=== PATIENT | male | born 1975 | race Caucasian/White ===

== ENCOUNTER 2023-03-13 01:31 | Emergency (ER) | payer MEDICAID ==
[~2023-03-13] VITALS: Ht 190.5 cm; Wt 129.2 kg
[2023-03-13 01:45] VITALS: BP 144/87; PULSE 69; RESP 16; TEMP 98.1; O2SAT 98
== END 2023-03-13 02:02 | disposition home or self-care (01) ==
LOC: ER 01:32
DX: F15.93 Other stimulant use, unspecified with withdrawal (principal)
CPT/HCPCS: 99281

== ENCOUNTER 2023-11-25 15:23 | Emergency (ER) | payer MEDICAID ==
[~2023-11-25] VITALS: Ht 190.5 cm; Wt 134.9 kg
[2023-11-25 15:24] VITALS: TEMP 99
[2023-11-25 17:02] LABS: BASOPHILS % (AUTO) 0.4 % (0-1); EOSINOPHILS # (AUTO) 0.1 X10'3 (0-0.9); EOSINOPHILS % (AUTO) 2.3 % (0-6); HEMOGLOBIN 12.5 g/dl (14.0-17.9); LYMPHOCYTES % (AUTO) 36.1 % (21-51); MEAN CORPUSCULAR HEMOGLOBIN 31.5 PG (27.0-31.0); MEAN CORPUSCULAR HGB CONC 33.9 g/dL (33.0-36.5); MEAN CORPUSCULAR VOLUME 92.9 FL (78-98); MEAN PLATELET VOLUME 8.3 FL (7.4-10.4); MONOCYTES # (AUTO) 0.4 X10'3 (0-0.9); MONOCYTES % (AUTO) 12.9 % (2-12); NEUTROPHILS # (AUTO) 1.4 X10'3 (1.8-7.7); NEUTROPHILS % (AUTO) 48.3 % (42-75); PLATELET COUNT 78 X10'3 (140-440); RED BLOOD COUNT 3.99 X10'6 (4.70-6.10); RED CELL DISTRIBUTION WIDTH 13.8 % (11.5-14.5); WHITE BLOOD COUNT 2.8 X10'3 (4.5-11.0)
[2023-11-25 17:17] LABS: ALANINE AMINOTRANSFERASE 349 U/L (12-78); ALBUMIN 2.7 G/DL (3.4-5.0); ALBUMIN/GLOBULIN RATIO 0.7 (1.1-1.5); ALKALINE PHOSPHATASE 152 IU/L (46-116); ANION GAP 4 (8-16); ASPARTATE AMINO TRANSFERASE 320 U/L (10-37); BLOOD UREA NITROGEN 13 MG/DL (7-18); BUN/CREATININE RATIO 17.8 (10.0-20.0); CALCIUM 8.4 MG/DL (8.5-10.1); CHLORIDE 107 MMOL/L (99-107); CREATININE 0.73 MG/DL (0.60-1.10); GLUCOSE 141 MG/DL (70-104); POTASSIUM 3.6 MMOL/L (3.5-5.1); SODIUM 141 MMOL/L (135-145); TOTAL CARBON DIOXIDE 30.1 MMOL/L (24-32); TOTAL PROTEIN 6.8 G/DL (6.4-8.2); eCRCL 150 ML/MIN; eGFR > 90 ML/MIN
[2023-11-25 17:28] LABS: FREE T4 (FREE THYROXINE) 1.15 NG/DL (0.73-1.40); PLATELET ESTIMATE DECREASED; PRO BRAIN NATRIURETIC PEPTIDE 37 PG/ML (0-125); THYROID STIMULATING HORMONE 2.33 ulU/ml (0.34-4.50); TOTAL CELLS COUNTED 100
[2023-11-25 17:57] LABS: APTT 32 SECONDS (22-32); INR 1.3 INR; PROTHROMBIN TIME 13.2 SECONDS (9.0-12.0)
[2023-11-25] MEDS ORDERED: POTA-207 PO (18:13)
[2023-11-25] MEDS ORDERED: FURO40TA4 PO (18:13)
[2023-11-25 18:55] VITALS: BP 145/79; PULSE 66; RESP 15; O2SAT 96
== END 2023-11-25 18:56 | disposition home or self-care (01) ==
LOC: ER 15:24
DX: R60.0 Localized edema (principal); R74.8 Abnormal levels of other serum enzymes; F17.210 Nicotine dependence, cigarettes, uncomplicated; F15.90 Other stimulant use, unspecified, uncomplicated; M79.661 Pain in right lower leg; Z79.899 Other long term (current) drug therapy
CPT/HCPCS: 36415; 71045; 80053; 83880; 84439; 84443; 84484; 85007; 85025; 85610; 85730; 93005; 93971; 99285

== ENCOUNTER 2024-06-12 16:06 | Inpatient (IN) | payer MEDICAID ==
[~2024-06-12] VITALS: Ht 190.5 cm; Wt 136.4 kg
[~2024-06-12 16:06] MED LIST: FURO40TA4 PO
[2024-06-12 17:11] LABS: BASOPHILS % (AUTO) 0.1 % (0-1); EOSINOPHILS # (AUTO) 0.1 X10'3 (0-0.9); EOSINOPHILS % (AUTO) 1.3 % (0-6); HEMATOCRIT 40.8 % (42.0-52.0); HEMOGLOBIN 14.4 g/dl (14.0-17.9); LYMPHOCYTES # (AUTO) 0.8 X10'3 (1.1-4.8); LYMPHOCYTES % (AUTO) 6.5 % (21-51); MEAN CORPUSCULAR HEMOGLOBIN 32.7 PG (27.0-31.0); MEAN CORPUSCULAR HGB CONC 35.2 g/dL (33.0-36.5); MEAN PLATELET VOLUME 7.9 FL (7.4-10.4); MONOCYTES # (AUTO) 1.3 X10'3 (0-0.9); MONOCYTES % (AUTO) 11.1 % (2-12); NEUTROPHILS # (AUTO) 9.4 X10'3 (1.8-7.7); PLATELET COUNT 94 X10'3 (140-440); RED BLOOD COUNT 4.39 X10'6 (4.70-6.10); RED CELL DISTRIBUTION WIDTH 13.4 % (11.5-14.5); WHITE BLOOD COUNT 11.6 X10'3 (4.5-11.0)
[2024-06-12 17:27] LABS: ALBUMIN 2.3 G/DL (3.4-5.0); ANION GAP 6 (8-16); BLOOD UREA NITROGEN 19 MG/DL (7-18); BUN/CREATININE RATIO 23.2 (10.0-20.0); CALCIUM 8.5 MG/DL (8.5-10.1); CHLORIDE 99 MMOL/L (99-107); CREATININE 0.82 MG/DL (0.60-1.10); GLUCOSE 94 MG/DL (70-104); SODIUM 134 MMOL/L (135-145); TOTAL CARBON DIOXIDE 29.2 MMOL/L (24-32); eCRCL 133 ML/MIN; eGFR > 90 ML/MIN
[2024-06-12 17:28] LABS: POTASSIUM 3.4 MMOL/L (3.5-5.1)
[2024-06-12] MEDS ORDERED: VANCOMYCIN 1GM 200ML H20 (PEG) 200 ML IV ONE (18:00)
[2024-06-12] MEDS: vancomycin/NS 1 GM ADD-VANTAGE 250 ML IV ONE (19:29)
[2024-06-12] MEDS ORDERED: magnesium sulf-water 2g/50mL 50 ML IV PRN (20:20)
[2024-06-12] MEDS ORDERED: magnesium Cl slow-release 64mg tablet PO PRN (20:20)
[2024-06-12] MEDS ORDERED: potassium Cl 40MEQ/1/2NS 520ml 520 ML IV PRN (20:20)
[2024-06-12] MEDS ORDERED: magnesium sulf-water 4G/100mL 100 ML IV PRN (20:20)
[2024-06-12] MEDS ORDERED: ondansetron/PF 4mg/2ml inj IV PRN (20:20)
[2024-06-13] VITALS (8 sets, daily range): BP systolic 115–138; BP diastolic 46–69; PULSE 91–100; RESP 18–22; TEMP 97.9–100.2; O2SAT 93–99
[2024-06-13] MEDS ORDERED: PERFLUTREN PROTEIN-A MICROSPHR (Optison) 0.22 MG/ML 3ML VIAL IV PRN (00:55)
[2024-06-13] MEDS: acetaminophen 325mg tablet PO PRN ×2 (01:24→21:36)
[2024-06-13] MEDS: CEFEPIME 2gm in D5W 50mL 50 ML IV SCH (02:26)
[2024-06-13] MEDS: VANCOMYCIN 1GM 200ML H20 (PEG) 250 ML IV SCH (04:05)
[2024-06-13 04:35] LABS: BILIRUBIN,URINE SMALL (Neg); CLARITY,URINE SLIGHTLY CLOUDY (Clear); COLOR,URINE YELLOW (Yellow); GLUCOSE, URINE 100 mg/dl (Neg); KETONES,URINE NEGATIVE (Neg); LEUKOCYTE ESTERASE ,URINE NEGATIVE (Neg); NITRITES, URINE NEGATIVE (Neg); OCCULT BLOOD,URINE NEGATIVE (Neg); PROTEIN,URINE NEGATIVE (Neg); UROBILINOGEN,URINE >=8.0 E.U/dL (0.2-1.0)
[2024-06-13 04:38] LABS: UA COLLECTION TYPE URINAL
[2024-06-13 04:45] LABS: BACTERIA,URINE FEW /HPF (Neg); RBC,URINE NONE SEEN /HPF (0-2); SQUAMOUS EPITHELIAL CELL,UR FEW /LPF (FEW); WBC,URINE 0-4 /HPF (0-4)
[2024-06-13 04:57] LABS: URINE AMPHETAMINE SCREEN POSITIVE (Neg); URINE BARBITUATE SCREEN NEGATIVE (Neg); URINE BENZODIAZEPINES SCREEN NEGATIVE (Neg); URINE CANNABINOID SCREEN NEGATIVE (Neg); URINE COCAINE SCREEN NEGATIVE (Neg); URINE METHADONE SCREEN POSITIVE (Neg); URINE OPIATE SCREEN NEGATIVE (Neg); URINE PHENCYCLIDINE SCREEN NEGATIVE (Neg)
[2024-06-13] MEDS: heparin, porcine 5000 units/ml vial SQ SCH (08:00)
[2024-06-13] MEDS: K and/or MAG REPLACEMENT MC SCH (08:00)
[2024-06-13] MEDS ORDERED: SOFO1TAB3 (08:52)
[2024-06-13] MEDS ORDERED: METH-603 PO (09:01)
[2024-06-13] MEDS: docusate sod 100mg capsule PO SCH (09:02)
[2024-06-13] MEDS: furosemide 40mg/4ml inj IV SCH (09:02)
[2024-06-13 10:38] LABS: BASOPHILS % (AUTO) 0.1 % (0-1); EOSINOPHILS # (AUTO) 0.1 X10'3 (0-0.9); EOSINOPHILS % (AUTO) 1.1 % (0-6); HEMATOCRIT 35.1 % (42.0-52.0); HEMOGLOBIN 12.4 g/dl (14.0-17.9); LYMPHOCYTES # (AUTO) 0.7 X10'3 (1.1-4.8); LYMPHOCYTES % (AUTO) 7.2 % (21-51); MEAN CORPUSCULAR HEMOGLOBIN 32.9 PG (27.0-31.0); MEAN CORPUSCULAR HGB CONC 35.2 g/dL (33.0-36.5); MEAN CORPUSCULAR VOLUME 93.6 FL (78-98); MEAN PLATELET VOLUME 8.2 FL (7.4-10.4); MONOCYTES # (AUTO) 1.1 X10'3 (0-0.9); MONOCYTES % (AUTO) 10.7 % (2-12); NEUTROPHILS # (AUTO) 8.4 X10'3 (1.8-7.7); NEUTROPHILS % (AUTO) 80.9 % (42-75); PLATELET COUNT 88 X10'3 (140-440); RED BLOOD COUNT 3.75 X10'6 (4.70-6.10); RED CELL DISTRIBUTION WIDTH 13.8 % (11.5-14.5); WHITE BLOOD COUNT 10.4 X10'3 (4.5-11.0)
[2024-06-13 10:46] LABS: ALANINE AMINOTRANSFERASE 28 U/L (12-78); ALBUMIN 1.8 G/DL (3.4-5.0); ALBUMIN/GLOBULIN RATIO 0.4 (1.1-1.5); ALKALINE PHOSPHATASE 124 IU/L (46-116); ANION GAP 4 (8-16); ASPARTATE AMINO TRANSFERASE 40 U/L (10-37); BILIRUBIN,TOTAL 2.1 MG/DL (0.1-1.0); BLOOD UREA NITROGEN 16 MG/DL (7-18); BUN/CREATININE RATIO 20.3 (10.0-20.0); CALCIUM 7.8 MG/DL (8.5-10.1); CHLORIDE 102 MMOL/L (99-107); CREATININE 0.79 MG/DL (0.60-1.10); GLUCOSE 102 MG/DL (70-104); MAGNESIUM 1.9 MG/DL (1.5-2.4); SODIUM 135 MMOL/L (135-145); TOTAL CARBON DIOXIDE 29.1 MMOL/L (24-32); TOTAL PROTEIN 5.9 G/DL (6.4-8.2); eCRCL 138 ML/MIN; eGFR > 90 ML/MIN
[2024-06-13 10:47] LABS: POTASSIUM 3.5 MMOL/L (3.5-5.1)
[2024-06-13] MEDS: methadone 10mg tablet PO SCH (12:59)
[2024-06-13] MEDS: VANCOMYCIN 1GM 200ML H20 (PEG) 200 ML IV SCH (13:37)
[2024-06-13] MEDS ORDERED: SOFO1TAB3 PO (15:51)
[2024-06-13] MEDS: lactose-reduced food (Ensure High Protein) 237ml bottle PO SCH (18:03)
[2024-06-13] MEDS: VANCOMYCIN LEVEL IV ONE (20:05)
[2024-06-14 02:00] VITALS: BP 130/58; PULSE 94; RESP 18; TEMP 98.2; O2SAT 92
[2024-06-14 02:35] VITALS: BP 117/46; PULSE 87; RESP 16; TEMP 99.1; O2SAT 93
[2024-06-14 05:17] LABS: BASOPHILS % (AUTO) 0.3 % (0-1); EOSINOPHILS # (AUTO) 0.2 X10'3 (0-0.9); EOSINOPHILS % (AUTO) 1.8 % (0-6); HEMOGLOBIN 12.7 g/dl (14.0-17.9); LYMPHOCYTES # (AUTO) 1.2 X10'3 (1.1-4.8); MEAN CORPUSCULAR HEMOGLOBIN 32.5 PG (27.0-31.0); MEAN CORPUSCULAR HGB CONC 35.2 g/dL (33.0-36.5); MEAN CORPUSCULAR VOLUME 92.5 FL (78-98); MEAN PLATELET VOLUME 7.5 FL (7.4-10.4); MONOCYTES # (AUTO) 1.4 X10'3 (0-0.9); MONOCYTES % (AUTO) 11.8 % (2-12); NEUTROPHILS # (AUTO) 9.2 X10'3 (1.8-7.7); NEUTROPHILS % (AUTO) 76.1 % (42-75); PLATELET COUNT 85 X10'3 (140-440); RED BLOOD COUNT 3.89 X10'6 (4.70-6.10); RED CELL DISTRIBUTION WIDTH 13.9 % (11.5-14.5)
[2024-06-14 05:47] LABS: ALANINE AMINOTRANSFERASE 25 U/L (12-78); ALBUMIN 1.6 G/DL (3.4-5.0); ALBUMIN/GLOBULIN RATIO 0.4 (1.1-1.5); ALKALINE PHOSPHATASE 158 IU/L (46-116); ANION GAP 5 (8-16); ASPARTATE AMINO TRANSFERASE 33 U/L (10-37); BILIRUBIN,TOTAL 1.5 MG/DL (0.1-1.0); BLOOD UREA NITROGEN 14 MG/DL (7-18); BUN/CREATININE RATIO 17.7 (10.0-20.0); CALCIUM 7.6 MG/DL (8.5-10.1); CHLORIDE 102 MMOL/L (99-107); CREATININE 0.79 MG/DL (0.60-1.10); GLUCOSE 118 MG/DL (70-104); SODIUM 135 MMOL/L (135-145); TOTAL CARBON DIOXIDE 28.2 MMOL/L (24-32); TOTAL PROTEIN 5.8 G/DL (6.4-8.2); eCRCL 138 ML/MIN; eGFR > 90 ML/MIN
[2024-06-14 06:00] VITALS: BP 113/50; PULSE 80; RESP 16; TEMP 98.6; O2SAT 93
[2024-06-14 06:02] LABS: POTASSIUM 2.8 MMOL/L (3.5-5.1)
[2024-06-14] MEDS: potassium Cl 20 mEq SR tablet PO PRN (06:19)
[2024-06-14] MEDS ORDERED: methadone 10mg tablet PO SCH (08:00)
[2024-06-14 08:23] LABS: PLATELET ESTIMATE DECREASED; TOTAL CELLS COUNTED 100
[2024-06-14 08:24] LABS: POIKILOCYTOSIS 1+; TOXIC GRANULATION 2+
[2024-06-14 08:28] VITALS: RESP 19; O2SAT 94
[2024-06-14] MEDS: VANCOMYCIN/WATER FOR INJ (PEG) 1.5GM/300 ML IVPB IV SCH (11:13)
[2024-06-14 18:05] VITALS: BP 139/68; PULSE 81; RESP 18; TEMP 99; O2SAT 93
[2024-06-14 22:00] VITALS: BP 138/54; PULSE 53; RESP 18; TEMP 97.8; O2SAT 94
[2024-06-15 07:21] VITALS: BP 130/61; PULSE 80; RESP 18; TEMP 98; O2SAT 94
[2024-06-15 08:00] VITALS: RESP 18
[2024-06-15] MEDS: VANCOMYCIN LEVEL IV ONE (11:36)
[2024-06-15 11:39] VITALS: BP 137/78; PULSE 76; RESP 16; TEMP 98.6; O2SAT 98
[2024-06-15 12:58] LABS: BASOPHILS % (AUTO) 0.3 % (0-1); EOSINOPHILS # (AUTO) 0.2 X10'3 (0-0.9); EOSINOPHILS % (AUTO) 1.7 % (0-6); HEMATOCRIT 38.3 % (42.0-52.0); HEMOGLOBIN 13.3 g/dl (14.0-17.9); LYMPHOCYTES # (AUTO) 1.2 X10'3 (1.1-4.8); LYMPHOCYTES % (AUTO) 9.8 % (21-51); MEAN CORPUSCULAR HEMOGLOBIN 32.5 PG (27.0-31.0); MEAN CORPUSCULAR HGB CONC 34.9 g/dL (33.0-36.5); MEAN CORPUSCULAR VOLUME 93.1 FL (78-98); MEAN PLATELET VOLUME 7.5 FL (7.4-10.4); MONOCYTES # (AUTO) 1.5 X10'3 (0-0.9); MONOCYTES % (AUTO) 11.7 % (2-12); NEUTROPHILS # (AUTO) 9.5 X10'3 (1.8-7.7); NEUTROPHILS % (AUTO) 76.5 % (42-75); PLATELET COUNT 98 X10'3 (140-440); RED BLOOD COUNT 4.11 X10'6 (4.70-6.10); WHITE BLOOD COUNT 12.4 X10'3 (4.5-11.0)
[2024-06-15 13:10] LABS: ALANINE AMINOTRANSFERASE 24 U/L (12-78); ALBUMIN 1.6 G/DL (3.4-5.0); ALBUMIN/GLOBULIN RATIO 0.3 (1.1-1.5); ALKALINE PHOSPHATASE 136 IU/L (46-116); ANION GAP 0 (8-16); ASPARTATE AMINO TRANSFERASE 41 U/L (10-37); BILIRUBIN,TOTAL 1.4 MG/DL (0.1-1.0); BLOOD UREA NITROGEN 14 MG/DL (7-18); CALCIUM 7.7 MG/DL (8.5-10.1); CHLORIDE 100 MMOL/L (99-107); CREATININE 0.61 MG/DL (0.60-1.10); GLUCOSE 119 MG/DL (70-104); MAGNESIUM 1.8 MG/DL (1.5-2.4); POTASSIUM 3.1 MMOL/L (3.5-5.1); SODIUM 135 MMOL/L (135-145); TOTAL CARBON DIOXIDE 34.7 MMOL/L (24-32); TOTAL PROTEIN 6.4 G/DL (6.4-8.2); VANCOMYCIN,TROUGH 11.7 ug/mL (10.0-20.0); eCRCL 179 ML/MIN; eGFR > 90 ML/MIN
[2024-06-15] MEDS: potassium Cl 20 mEq SR tablet PO PRN ×2 (13:28→21:34)
[2024-06-15 17:22] LABS: CREATINE KINASE 28 U/L (39-308); LIPASE 15 U/L (16-77); PRO BRAIN NATRIURETIC PEPTIDE 592 PG/ML (0-125)
[2024-06-15 18:00] VITALS: BP 111/61; PULSE 95; RESP 13; TEMP 98; O2SAT 93
[2024-06-15 20:00] VITALS: RESP 18; O2SAT 93
[2024-06-15] MEDS: VANCOMYCIN 1.75GM/WATER FOR INJ (PEG) 350 ML IVPB IV SCH (20:25)
[2024-06-15] MEDS ORDERED: potassium Cl 20 mEq SR tablet PO PRN (20:45)
[2024-06-15] MEDS ORDERED: magnesium Cl slow-release 64mg tablet PO PRN (20:50)
[2024-06-15] MEDS ORDERED: magnesium sulf-water 2g/50mL 50 ML IV PRN (20:50)
[2024-06-15] MEDS ORDERED: potassium Cl 40MEQ/1/2NS 520ml 520 ML IV PRN (20:50)
[2024-06-15] MEDS ORDERED: magnesium sulf-water 4G/100mL 100 ML IV PRN (20:50)
[2024-06-15 22:00] VITALS: BP 120/67; PULSE 87; RESP 20; TEMP 98.7; O2SAT 96
[2024-06-16 05:00] VITALS: BP 121/58; PULSE 80; RESP 16; TEMP 97.1; O2SAT 95
[2024-06-16 06:13] LABS: BASOPHILS % (AUTO) 0 % (0-1); EOSINOPHILS # (AUTO) 0.2 X10'3 (0-0.9); EOSINOPHILS % (AUTO) 1.9 % (0-6); HEMATOCRIT 37.6 % (42.0-52.0); HEMOGLOBIN 12.8 g/dl (14.0-17.9); LYMPHOCYTES # (AUTO) 0.9 X10'3 (1.1-4.8); LYMPHOCYTES % (AUTO) 7.7 % (21-51); MEAN CORPUSCULAR HEMOGLOBIN 31.8 PG (27.0-31.0); MEAN CORPUSCULAR HGB CONC 33.9 g/dL (33.0-36.5); MEAN CORPUSCULAR VOLUME 93.8 FL (78-98); MEAN PLATELET VOLUME 7.4 FL (7.4-10.4); MONOCYTES # (AUTO) 9.2 X10'3 (0-0.9); MONOCYTES % (AUTO) 78.9 % (2-12); NEUTROPHILS # (AUTO) 1.3 X10'3 (1.8-7.7); NEUTROPHILS % (AUTO) 11.5 % (42-75); PLATELET COUNT 94 X10'3 (140-440); RED BLOOD COUNT 4.01 X10'6 (4.70-6.10); RED CELL DISTRIBUTION WIDTH 13.9 % (11.5-14.5); WHITE BLOOD COUNT 11.7 X10'3 (4.5-11.0)
[2024-06-16 06:34] LABS: ALANINE AMINOTRANSFERASE 22 U/L (12-78); ALBUMIN 1.5 G/DL (3.4-5.0); ALBUMIN/GLOBULIN RATIO 0.3 (1.1-1.5); ALKALINE PHOSPHATASE 133 IU/L (46-116); ANION GAP 4 (8-16); ASPARTATE AMINO TRANSFERASE 40 U/L (10-37); BILIRUBIN,TOTAL 1.5 MG/DL (0.1-1.0); BLOOD UREA NITROGEN 15 MG/DL (7-18); BUN/CREATININE RATIO 31.3 (10.0-20.0); CALCIUM 7.6 MG/DL (8.5-10.1); CHLORIDE 100 MMOL/L (99-107); CREATININE 0.48 MG/DL (0.60-1.10); GLUCOSE 61 MG/DL (70-104); MAGNESIUM 1.8 MG/DL (1.5-2.4); POTASSIUM 3.4 MMOL/L (3.5-5.1); SODIUM 137 MMOL/L (135-145); TOTAL CARBON DIOXIDE 32.9 MMOL/L (24-32); TOTAL PROTEIN 6.2 G/DL (6.4-8.2); eCRCL 227 ML/MIN; eGFR > 90 ML/MIN
[2024-06-16 08:30] VITALS: RESP 18; O2SAT 96
[2024-06-16] MEDS ORDERED: vancomycin/NS 1 GM ADD-VANTAGE 250 ML IV SCH (11:00)
[2024-06-16] MEDS: mag hydrox/Alum hydrox/simeth 30ml oral suspension PO PRN (11:38)
[2024-06-16 11:57] VITALS: BP 110/59; PULSE 86; RESP 18; TEMP 99.9; O2SAT 96
[2024-06-16 18:00] VITALS: BP 134/74; PULSE 87; RESP 20; TEMP 99.3; O2SAT 98
[2024-06-16 20:00] VITALS: RESP 18; O2SAT 98
[2024-06-16] MEDS: VANCOMYCIN LEVEL IV ONE (20:58)
[2024-06-16] MEDS: HYDROcodone/acetaminophen 5mg/325mg tablet PO PRN (21:43)
[2024-06-16 22:00] VITALS: BP 142/79; PULSE 85; RESP 16; TEMP 96.8; O2SAT 98
[2024-06-17] MEDS: morphine 2 MG/ML inj. syringe IV PRN (00:02)
[2024-06-17 07:00] VITALS: BP 115/55; PULSE 80; RESP 12; TEMP 97.9; O2SAT 96
[2024-06-17 10:00] VITALS: BP 126/66; PULSE 86; RESP 14; TEMP 97.9; O2SAT 96
[2024-06-17] MEDS: PERFLUTREN PROTEIN-A MICROSPHR (Optison) 0.22 MG/ML 3ML VIAL IV ONE (10:05)
[2024-06-17 16:00] VITALS: BP 118/63; PULSE 79; RESP 20; TEMP 98.8; O2SAT 97
[2024-06-17] MEDS: magnesium hydroxide 30ml (MOM) UD suspension PO PRN (17:59)
[2024-06-17] MEDS: lactose-reduced food (Ensure Enlive) - 237ml bottle PO SCH (17:59)
[2024-06-17 18:00] VITALS: BP 118/63; PULSE 79; RESP 20; TEMP 98.8; O2SAT 97
[2024-06-17 22:00] VITALS: BP 111/59; PULSE 88; RESP 13; TEMP 98.8; O2SAT 97
[2024-06-18 07:03] VITALS: BP 114/51; PULSE 55; RESP 13; TEMP 99; O2SAT 100
[2024-06-18 07:15] VITALS: RESP 13; O2SAT 100
[2024-06-18] MEDS: DAPTOmycin inj. 750 MG in normal saline 100ml IV soln 100 ML IV SCH (09:09)
[2024-06-18 10:00] VITALS: BP 127/54; PULSE 86; RESP 17; TEMP 98; O2SAT 95
[2024-06-18 11:24] LABS: ALANINE AMINOTRANSFERASE 21 U/L (12-78); ALBUMIN 1.3 G/DL (3.4-5.0); ALBUMIN/GLOBULIN RATIO 0.2 (1.1-1.5); ALKALINE PHOSPHATASE 124 IU/L (46-116); ANION GAP 1 (8-16); ASPARTATE AMINO TRANSFERASE 32 U/L (10-37); BASOPHILS % (AUTO) 0.4 % (0-1); BILIRUBIN,TOTAL 1.3 MG/DL (0.1-1.0); BLOOD UREA NITROGEN 18 MG/DL (7-18); CALCIUM 7.7 MG/DL (8.5-10.1); CHLORIDE 102 MMOL/L (99-107); EOSINOPHILS # (AUTO) 0.2 X10'3 (0-0.9); EOSINOPHILS % (AUTO) 1.5 % (0-6); GLUCOSE 125 MG/DL (70-104); HEMATOCRIT 36.7 % (42.0-52.0); HEMOGLOBIN 12.7 g/dl (14.0-17.9); LYMPHOCYTES # (AUTO) 1.1 X10'3 (1.1-4.8); LYMPHOCYTES % (AUTO) 10.7 % (21-51); MEAN CORPUSCULAR HEMOGLOBIN 32.7 PG (27.0-31.0); MEAN CORPUSCULAR HGB CONC 34.7 g/dL (33.0-36.5); MEAN CORPUSCULAR VOLUME 94.3 FL (78-98); MEAN PLATELET VOLUME 7.4 FL (7.4-10.4); MONOCYTES # (AUTO) 0.8 X10'3 (0-0.9); MONOCYTES % (AUTO) 7.3 % (2-12); NEUTROPHILS # (AUTO) 8.6 X10'3 (1.8-7.7); NEUTROPHILS % (AUTO) 80.1 % (42-75); PLATELET COUNT 98 X10'3 (140-440); POTASSIUM 3.6 MMOL/L (3.5-5.1); RED BLOOD COUNT 3.89 X10'6 (4.70-6.10); RED CELL DISTRIBUTION WIDTH 13.8 % (11.5-14.5); SODIUM 136 MMOL/L (135-145); TOTAL CARBON DIOXIDE 33.5 MMOL/L (24-32); WHITE BLOOD COUNT 10.7 X10'3 (4.5-11.0); eCRCL 182 ML/MIN; eGFR > 90 ML/MIN
[2024-06-18 13:47] LABS: HIV ANTIBODY 1&2 RAPID NON-REACTIVE (Neg)
[2024-06-18] MEDS ORDERED: iohexol 300mg/ml 100ml inj. ONE (14:04)
[2024-06-18 18:00] VITALS: BP 102/58; PULSE 72; RESP 17; TEMP 97.9; O2SAT 95
[2024-06-18 20:40] VITALS: RESP 16
[2024-06-19 09:30] VITALS: BP 103/65; PULSE 90; RESP 16; TEMP 99; O2SAT 99
[2024-06-19 18:00] VITALS: BP 98/55; PULSE 85; RESP 14; TEMP 98.1; O2SAT 95
[2024-06-19 20:00] VITALS: RESP 14; O2SAT 95
[2024-06-19 22:00] VITALS: BP 121/49; PULSE 90; RESP 18; TEMP 99; O2SAT 94
[2024-06-20 06:00] VITALS: BP 140/64; PULSE 86; RESP 18; TEMP 99; O2SAT 95
[2024-06-20 06:33] LABS: BASOPHILS % (AUTO) 0.3 % (0-1); EOSINOPHILS # (AUTO) 0.1 X10'3 (0-0.9); EOSINOPHILS % (AUTO) 1.4 % (0-6); HEMOGLOBIN 12.2 g/dl (14.0-17.9); LYMPHOCYTES # (AUTO) 1.6 X10'3 (1.1-4.8); LYMPHOCYTES % (AUTO) 16.1 % (21-51); MEAN CORPUSCULAR HEMOGLOBIN 32.8 PG (27.0-31.0); MEAN CORPUSCULAR HGB CONC 34.9 g/dL (33.0-36.5); MEAN PLATELET VOLUME 7.3 FL (7.4-10.4); MONOCYTES # (AUTO) 0.9 X10'3 (0-0.9); MONOCYTES % (AUTO) 8.7 % (2-12); NEUTROPHILS # (AUTO) 7.4 X10'3 (1.8-7.7); NEUTROPHILS % (AUTO) 73.5 % (42-75); PLATELET COUNT 124 X10'3 (140-440); RED BLOOD COUNT 3.73 X10'6 (4.70-6.10); WHITE BLOOD COUNT 10.1 X10'3 (4.5-11.0)
[2024-06-20 06:42] LABS: ALANINE AMINOTRANSFERASE 17 U/L (12-78); ALBUMIN 1.4 G/DL (3.4-5.0); ALBUMIN/GLOBULIN RATIO 0.2 (1.1-1.5); ALKALINE PHOSPHATASE 112 IU/L (46-116); ANION GAP 1 (8-16); ASPARTATE AMINO TRANSFERASE 32 U/L (10-37); BILIRUBIN,TOTAL 1.4 MG/DL (0.1-1.0); BLOOD UREA NITROGEN 21 MG/DL (7-18); BUN/CREATININE RATIO 31.8 (10.0-20.0); CALCIUM 7.8 MG/DL (8.5-10.1); CHLORIDE 102 MMOL/L (99-107); CREATININE 0.66 MG/DL (0.60-1.10); GLUCOSE 78 MG/DL (70-104); POTASSIUM 3.9 MMOL/L (3.5-5.1); SODIUM 137 MMOL/L (135-145); TOTAL CARBON DIOXIDE 33.6 MMOL/L (24-32); TOTAL PROTEIN 7.7 G/DL (6.4-8.2); eCRCL 165 ML/MIN; eGFR > 90 ML/MIN
[2024-06-20 07:00] VITALS: RESP 17; O2SAT 94
[2024-06-20 10:00] VITALS: BP 131/70; PULSE 84; TEMP 97.7; O2SAT 94
[2024-06-20 18:00] VITALS: BP 106/69; PULSE 83; RESP 16; TEMP 98.6; O2SAT 95
[2024-06-20 20:00] VITALS: RESP 20; O2SAT 96
[2024-06-20 22:00] VITALS: BP 145/63; PULSE 82; RESP 18; TEMP 98.1; O2SAT 95
[2024-06-21] VITALS (14 sets, daily range): BP systolic 110–136; BP diastolic 52–104; PULSE 74–108; RESP 11–22; TEMP 97.2–98.8; O2SAT 93–100
[2024-06-21 06:59] LABS: BASOPHILS % (AUTO) 0.4 % (0-1); EOSINOPHILS # (AUTO) 0.1 X10'3 (0-0.9); EOSINOPHILS % (AUTO) 1.6 % (0-6); HEMATOCRIT 34.2 % (42.0-52.0); HEMOGLOBIN 12.1 g/dl (14.0-17.9); LYMPHOCYTES # (AUTO) 1.5 X10'3 (1.1-4.8); MEAN CORPUSCULAR HEMOGLOBIN 33.1 PG (27.0-31.0); MEAN CORPUSCULAR VOLUME 93.4 FL (78-98); MONOCYTES # (AUTO) 0.6 X10'3 (0-0.9); NEUTROPHILS # (AUTO) 5.2 X10'3 (1.8-7.7); RED BLOOD COUNT 3.66 X10'6 (4.70-6.10)
[2024-06-21 07:02] LABS: LYMPHOCYTES % (AUTO) 20.4 % (21-51); MEAN CORPUSCULAR HGB CONC 35.4 g/dL (33.0-36.5); MEAN PLATELET VOLUME 7.1 FL (7.4-10.4); MONOCYTES % (AUTO) 7.9 % (2-12); NEUTROPHILS % (AUTO) 69.7 % (42-75); PLATELET COUNT 133 X10'3 (140-440); RED CELL DISTRIBUTION WIDTH 13.6 % (11.5-14.5); WHITE BLOOD COUNT 7.5 X10'3 (4.5-11.0)
[2024-06-21 07:49] LABS: ALANINE AMINOTRANSFERASE 18 U/L (12-78); ALBUMIN 1.3 G/DL (3.4-5.0); ALBUMIN/GLOBULIN RATIO 0.2 (1.1-1.5); ALKALINE PHOSPHATASE 105 IU/L (46-116); ANION GAP 1 (8-16); ASPARTATE AMINO TRANSFERASE 34 U/L (10-37); BILIRUBIN,TOTAL 1.2 MG/DL (0.1-1.0); BLOOD UREA NITROGEN 23 MG/DL (7-18); BUN/CREATININE RATIO 27.4 (10.0-20.0); CALCIUM 7.8 MG/DL (8.5-10.1); CHLORIDE 101 MMOL/L (99-107); CREATININE 0.84 MG/DL (0.60-1.10); GLUCOSE 79 MG/DL (70-104); POTASSIUM 4.2 MMOL/L (3.5-5.1); SODIUM 134 MMOL/L (135-145); TOTAL CARBON DIOXIDE 32.2 MMOL/L (24-32); TOTAL PROTEIN 8.1 G/DL (6.4-8.2); eCRCL 130 ML/MIN; eGFR > 90 ML/MIN
[2024-06-21] MEDS: dextrose 50%-water 50ml dispensing syringe IV ONE (17:02)
[2024-06-21] MEDS ORDERED: glucagon, human recombinant 1mg kit SUBCUT PRN (17:30)
[2024-06-21] MEDS ORDERED: DEXTROSE 15 GM of carb/4 tabs (each vial/BOTTLE has 4 tablets) PO PRN ×2 (17:30)
[2024-06-21] MEDS ORDERED: dextrose 50%-water 50ml dispensing syringe IV PRN ×2 (17:30)
[2024-06-21] MEDS ORDERED: morphine 2 MG/ML inj. syringe IV PRN (21:45)
[2024-06-21] MEDS ORDERED: labetalol 20mg/4ml (5mg/ml) syringe IV PRN (21:45)
[2024-06-21] MEDS ORDERED: meperidine/PF 25mg/ml syringe IV PRN ×3 (21:45)
[2024-06-21] MEDS ORDERED: hydrALAZINE 20mg/ml inj. IV PRN (21:45)
[2024-06-21] MEDS ORDERED: ondansetron/PF 4mg/2ml inj IV PRN (21:45)
[2024-06-21] MEDS ORDERED: morphine 4 MG/ML inj SYRINge IV PRN (21:45)
[2024-06-21] MEDS: ringers solution, lacted 1,000 ML IV SCH (21:45)
[2024-06-21] MEDS ORDERED: proCHLORperazine 10 MG/2 ml inj IV PRN (21:45)
[2024-06-21] MEDS ORDERED: sevoflurane 250ml liquid IH ONE (21:58)
[2024-06-21] MEDS ORDERED: fentaNYL/PF 50MCG/1 ML 2ML syringe ONE (22:04)
[2024-06-21] MEDS ORDERED: ondansetron/PF 4mg/2ml inj ONE (22:33)
[2024-06-21] MEDS ORDERED: LIDOcaine 2% (20mg/ml) 5ml vial ONE (22:33)
[2024-06-21] MEDS ORDERED: rocuronium 10mg/ml inj IV ONE (22:33)
[2024-06-21] MEDS ORDERED: dexamethasone sod phosphate 4mg/ml inj. ONE (22:33)
[2024-06-21] MEDS ORDERED: ceFAZolin 1000mg inj ONE ×3 (22:33)
[2024-06-21] MEDS ORDERED: midazolam 1 mg/ML 2ml injection ONE (22:33)
[2024-06-21] MEDS ORDERED: propofol inj 20 ML IV ONE ×2 (22:33)
[2024-06-21] MEDS ORDERED: neostigmine methylsulfate 1 MG/ML 10ml vial ONE (22:51)
[2024-06-21] MEDS ORDERED: glycopyrrolate 0.2mg/ml inj ONE (22:51)
[2024-06-22] VITALS (10 sets, daily range): BP systolic 93–142; BP diastolic 52–71; PULSE 59–94; RESP 16–18; TEMP 97.6–98.7; O2SAT 94–96
[2024-06-22 05:34] LABS: BASOPHILS % (AUTO) 0.1 % (0-1); EOSINOPHILS % (AUTO) 0.2 % (0-6); HEMATOCRIT 33.6 % (42.0-52.0); HEMOGLOBIN 11.9 g/dl (14.0-17.9); LYMPHOCYTES # (AUTO) 0.8 X10'3 (1.1-4.8); LYMPHOCYTES % (AUTO) 12.3 % (21-51); MEAN CORPUSCULAR HEMOGLOBIN 33.1 PG (27.0-31.0); MEAN CORPUSCULAR HGB CONC 35.4 g/dL (33.0-36.5); MEAN CORPUSCULAR VOLUME 93.7 FL (78-98); MEAN PLATELET VOLUME 7.5 FL (7.4-10.4); MONOCYTES # (AUTO) 0.1 X10'3 (0-0.9); MONOCYTES % (AUTO) 2.1 % (2-12); NEUTROPHILS # (AUTO) 5.5 X10'3 (1.8-7.7); NEUTROPHILS % (AUTO) 85.3 % (42-75); PLATELET COUNT 139 X10'3 (140-440); RED BLOOD COUNT 3.59 X10'6 (4.70-6.10); RED CELL DISTRIBUTION WIDTH 13.9 % (11.5-14.5); WHITE BLOOD COUNT 6.5 X10'3 (4.5-11.0)
[2024-06-22 05:48] LABS: ALANINE AMINOTRANSFERASE 18 U/L (12-78); ALBUMIN 1.3 G/DL (3.4-5.0); ALBUMIN/GLOBULIN RATIO 0.2 (1.1-1.5); ALKALINE PHOSPHATASE 99 IU/L (46-116); ANION GAP 1 (8-16); ASPARTATE AMINO TRANSFERASE 34 U/L (10-37); BILIRUBIN,TOTAL 0.8 MG/DL (0.1-1.0); BLOOD UREA NITROGEN 31 MG/DL (7-18); BUN/CREATININE RATIO 32.3 (10.0-20.0); CALCIUM 7.9 MG/DL (8.5-10.1); CHLORIDE 101 MMOL/L (99-107); CREATININE 0.96 MG/DL (0.60-1.10); GLUCOSE 180 MG/DL (70-104); POTASSIUM 5.1 MMOL/L (3.5-5.1); SODIUM 136 MMOL/L (135-145); TOTAL CARBON DIOXIDE 34.3 MMOL/L (24-32); TOTAL PROTEIN 8.1 G/DL (6.4-8.2); eCRCL 114 ML/MIN; eGFR 84 ML/MIN
[2024-06-22] MEDS: lactose-reduced food (Ensure Enlive) - 237ml bottle PO SCH (14:05)
[2024-06-23 06:00] VITALS: BP_SYST 137; BP_SYST 140; BP_DIAS 64; BP_DIAS 70; PULSE 58; PULSE 86; RESP 16; RESP 18; TEMP 98.2; TEMP 99; O2SAT 94; O2SAT 95
[2024-06-23 06:05] LABS: BASOPHILS % (AUTO) 0.2 % (0-1); EOSINOPHILS # (AUTO) 0.1 X10'3 (0-0.9); EOSINOPHILS % (AUTO) 1.3 % (0-6); HEMATOCRIT 34.7 % (42.0-52.0); HEMOGLOBIN 12.1 g/dl (14.0-17.9); LYMPHOCYTES % (AUTO) 21.1 % (21-51); MEAN CORPUSCULAR HEMOGLOBIN 32.8 PG (27.0-31.0); MEAN CORPUSCULAR HGB CONC 34.9 g/dL (33.0-36.5); MEAN CORPUSCULAR VOLUME 94.1 FL (78-98); MEAN PLATELET VOLUME 7.5 FL (7.4-10.4); MONOCYTES # (AUTO) 0.7 X10'3 (0-0.9); NEUTROPHILS # (AUTO) 6.7 X10'3 (1.8-7.7); NEUTROPHILS % (AUTO) 70.4 % (42-75); PLATELET COUNT 172 X10'3 (140-440); RED BLOOD COUNT 3.68 X10'6 (4.70-6.10); RED CELL DISTRIBUTION WIDTH 13.7 % (11.5-14.5); WHITE BLOOD COUNT 9.5 X10'3 (4.5-11.0)
[2024-06-23 06:29] LABS: ALANINE AMINOTRANSFERASE 13 U/L (12-78); ALBUMIN 1.3 G/DL (3.4-5.0); ALBUMIN/GLOBULIN RATIO 0.2 (1.1-1.5); ALKALINE PHOSPHATASE 106 IU/L (46-116); ANION GAP 1 (8-16); ASPARTATE AMINO TRANSFERASE 35 U/L (10-37); BILIRUBIN,TOTAL 0.8 MG/DL (0.1-1.0); BLOOD UREA NITROGEN 32 MG/DL (7-18); BUN/CREATININE RATIO 36.8 (10.0-20.0); CHLORIDE 102 MMOL/L (99-107); CREATININE 0.87 MG/DL (0.60-1.10); GLUCOSE 86 MG/DL (70-104); POTASSIUM 4.2 MMOL/L (3.5-5.1); SODIUM 135 MMOL/L (135-145); TOTAL CARBON DIOXIDE 31.9 MMOL/L (24-32); TOTAL PROTEIN 8.2 G/DL (6.4-8.2); eCRCL 125 ML/MIN; eGFR > 90 ML/MIN
[2024-06-23 08:15] VITALS: RESP 18
[2024-06-23 10:00] VITALS: BP 141/64; PULSE 61; RESP 18; TEMP 98.3; O2SAT 97
[2024-06-23 11:39] VITALS: RESP 15; O2SAT 97
[2024-06-23 18:40] VITALS: BP 134/61; PULSE 56; RESP 16; TEMP 98.3; O2SAT 97
[2024-06-23 22:00] VITALS: BP 145/65; PULSE 83; RESP 16; TEMP 98.6; O2SAT 97
[2024-06-24 10:01] VITALS: RESP 18
[2024-06-24 10:40] VITALS: BP 137/61; PULSE 70; RESP 18; TEMP 98.8; O2SAT 94
[2024-06-24] MEDS ORDERED: ASPI81TA52 PO (13:34)
[2024-06-24] MEDS ORDERED: FURO40TA4 PO (13:34)
[2024-06-24] MEDS ORDERED: POTA-192 PO (13:34)
[2024-06-24] MEDS ORDERED: SULF1TAB49 PO (13:34)
[2024-06-24 18:00] VITALS: BP 124/78; PULSE 63; RESP 18; TEMP 98.2; O2SAT 97
[2024-06-24 20:00] VITALS: RESP 18
[2024-06-24 22:00] VITALS: BP 138/69; PULSE 61; RESP 16; TEMP 99.1; O2SAT 98
[2024-06-25 06:00] VITALS: BP 132/68; RESP 17; TEMP 98.5; O2SAT 93
[2024-06-25 08:00] VITALS: RESP 18; O2SAT 95
[2024-06-25] MEDS ORDERED: FURO20TA4 PO (09:57)
[2024-06-25 10:00] VITALS: PULSE 84; RESP 17; TEMP 98; O2SAT 93
[2024-06-25 10:59] VITALS: RESP 18
== END 2024-06-25 18:55 | disposition home health service (06) | DRG 720 ==
LOC: ER 16:07 → ED HOLD 19:14 → PCU 3S 06-13 00:06 → SUR 3N 06-14 02:35
PROVIDERS: ADMIT Internal Medicine Critical Care Medicine; ATTEND Internal Medicine Critical Care Medicine
PROC: BW2110Z Computerized Tomography (CT Scan) of Abdomen and Pelvis using Low Osmolar Contrast, Unenhanced and Enhanced (ICD-10-PCS; 2024-06-18)
PROC: 0JBC0ZZ Excision of Pelvic Region Subcutaneous Tissue and Fascia, Open Approach (ICD-10-PCS; principal; 2024-06-21 21:58)
DX: A41.02 Sepsis due to Methicillin resistant Staphylococcus aureus (principal); L02.214 Cutaneous abscess of groin; B18.2 Chronic viral hepatitis C; F11.20 Opioid dependence, uncomplicated; F15.10 Other stimulant abuse, uncomplicated; F17.210 Nicotine dependence, cigarettes, uncomplicated; I88.9 Nonspecific lymphadenitis, unspecified; L03.314 Cellulitis of groin; L03.115 Cellulitis of right lower limb; L60.0 Ingrowing nail; M77.9 Enthesopathy, unspecified; G47.30 Sleep apnea, unspecified; F19.10 Other psychoactive substance abuse, uncomplicated; Z79.899 Other long term (current) drug therapy
CPT/HCPCS: 36415; 71045; 73700; 74177; 80048; 80053; 80202; 80305; 81001; 82550; 82948; 83605; 83690; 83735; 83880; 84100; 84145; 84484; 85007; 85025; 86703; 87040; 87070; 87075; 87077; 87081; 87186; 93005; 93306; 93308; 93926; 93971; 97161; 97530; 99285; A4615; A4618; A4649; A6154; A6213; A6223; A6253; A6258; A6446; A6449; A7000; G0378; J0690; J0692; J0878; J1100; J1940; J2003; J2250; J2270; J2405; J2704; J2710; J3010; J3370; J3372; J3490; J7030; J7040; J7120; Q9967